=== PATIENT | male | born 1965 | race Caucasian/White ===

== ENCOUNTER 2016-11-29 09:22 | Observation (INO) | payer OTHER ==
[2016-11-29] MEDS ORDERED: ASPIRIN 81 MG PO STA (09:55)
[2016-11-29] MEDS ORDERED: NITROGLYCERIN OINT 1 INCH/GM PACKET TOPICAL STA (09:55)
--- NOTE | 2016-11-29 09:58 | ED ---
General Adult HPI - General Chief complaint: Chest Pain Stated complaint: CHEST PAIN Time Seen by Provider: 11/29/16 09:25 Source: patient, RN notes reviewed Mode of arrival: ambulatory Limitations: no limitations - History of Present Illness Initial comments: This is a 51-year-old male who presents emergency Department with a family history significant for heart attacks both mom and dad. Patient comes in today because he is having shortness of breath associated with chest pain in the center of his chest. Patient states she was just resting when it occurred. Patient states he started feeling lightheaded like he might pass out what was occurring. Patient states it lasts about an hour and a half and now is completely resolved. Patient states she was also mildly sweaty and mildly nauseated when it occurred. Patient denies any headache patient denies numbness weakness. Patient denies any history of diabetes hypertension or high cholesterol. Patient denies any smoking. Patient denies abdominal pain patient denies any vomiting or diarrhea. Patient denies any recent fever chills or cough. - Related Data Home Medications Medication Instructions Recorded Confirmed Aspirin EC [Ecotrin Low Dose] 81 mg PO ONCE PRN 11/29/16 11/29/16 Allergies Allergy/AdvReac Type Severity Reaction Status Date / Time meperidine [From Demerol] AdvReac Severe CARDIAC Verified 11/29/16 09:37 ARREST Review of Systems ROS Statement: Those systems with pertinent positive or pertinent negative responses have been documented in the HPI. ROS Other: All systems not noted in ROS Statement are negative. Past Medical History Additional Past Medical History / Comment(s): ulcers History of Any Multi-Drug Resistant Organisms: None Reported Past Surgical History: Orthopedic Surgery Past Psychological History: Bipolar Smoking Status: Former smoker Past Alcohol Use History: None Reported Past Drug Use History: None Reported General Exam - General Exam Comments Initial Comments: GENERAL: Patient is well-developed and well-nourished. Patient is nontoxic and well- hydrated and is in no acute distress. ENT: Neck is soft and supple. No significant lymphadenopathy is noted. Oropharynx is clear. Moist mucous membranes. Neck has full range of motion without eliciting any pain. EYES: The sclera were anicteric and conjunctiva were pink and moist. Extraocular movements were intact and pupils were equal round and reactive to light. Eyelids were unremarkable. PULMONARY: Unlabored respirations. Good breath sounds bilaterally. No audible rales rhonchi or wheezing was noted. CARDIOVASCULAR: There is a regular rate and rhythm without any murmurs gallops or rubs. ABDOMEN: Soft and nontender with normal bowel sounds. No palpable organomegaly was noted. There is no palpable pulsatile mass. SKIN: Skin is clear with no lesions or rashes and otherwise unremarkable. NEUROLOGIC: Patient is alert and oriented x3. Cranial nerves II through XII are grossly intact. Motor and sensory are also intact. Normal speech, volume and content. Symmetrical smile. MUSCULOSKELETAL: Normal extremities with adequate strength and full range of motion. No lower extremity swelling or edema. No calf tenderness. LYMPHATICS: No significant lymphadenopathy is noted PSYCHIATRIC: Normal psychiatric evaluation. Limitations: no limitations Course Vital Signs 11/29/16 11/29/16 09:24 10:41 Temperature 97.8 F Pulse Rate 88 76 Respiratory 20 18 Rate Blood Pressure 152/96 121/85 O2 Sat by Pulse 98 97 Oximetry Medical Decision Making - Medical Decision Making EKG shows sinus tachycardia at 102 bpm NM interval is 150 QRS is 84 QT interval 364 QTC is 474. Patient's EKG shows no ST segment elevation or depression or T wave abnormalities are noted. Chest x-ray shows no acute abnormality. Patient has been chest pain free since pain emergency department. - Lab Data Result diagrams: 11/29/16 09:30 11/29/16 09:30 Lab Results 11/29/16 11/29/16 11/29/16 Range/Units 09:30 09:30 09:30 WBC 6.1 (3.8-10.6) k/uL RBC 5.20 (4.30-5.90) m/uL Hgb 16.0 (13.0-17.5) gm/dL Hct 43.3 (39.0-53.0) % MCV 83.4 (80.0-100.0) fL MCH 30.8 (25.0-35.0) pg MCHC 37.0 (31.0-37.0) g/dL RDW 13.4 (11.5-15.5) % Plt Count 318 (150-450) k/uL Neutrophils % 54 % Lymphocytes % 31 % Monocytes % 9 % Eosinophils % 2 % Basophils % 1 % Neutrophils # 3.3 (1.3-7.7) k/uL Lymphocytes # 1.9 (1.0-4.8) k/uL Monocytes # 0.5 (0-1.0) k/uL Eosinophils # 0.1 (0-0.7) k/uL Basophils # 0.0 (0-0.2) k/uL Hyperchromasia Slight PT (9.0-12.0) sec INR (<1.2) APTT (22.0-30.0) sec Sodium 144 (137-145) mmol/L Potassium 4.0 (3.5-5.1) mmol/L Chloride 104 (98-107) mmol/L Carbon Dioxide 27 (22-30) mmol/L Anion Gap 13 mmol/L BUN 9 (9-20) mg/dL Creatinine 1.07 (0.66-1.25) mg/dL Est GFR (MDRD) Af Amer >60 (>60 ml/min/1.73 sqM) Est GFR (MDRD) Non-Af >60 (>60 ml/min/1.73 sqM) Glucose 107 H (74-99) mg/dL Calcium 9.6 (8.4-10.2) mg/dL Magnesium 2.0 (1.6-2.3) mg/dL Total Bilirubin 0.6 (0.2-1.3) mg/dL AST 30 (17-59) U/L ALT 59 (21-72) U/L Alkaline Phosphatase 78 (38-126) U/L Total Creatine Kinase 94 (55-170) U/L CK-MB (CK-2) 1.1 (0.0-2.4) ng/mL CK-MB (CK-2) Rel Index 1.2 Troponin I <0.012 (0.000-0.034) ng/mL Total Protein 7.6 (6.3-8.2) g/dL Albumin 4.7 (3.5-5.0) g/dL 11/29/16 Range/Units 09:30 WBC (3.8-10.6) k/uL RBC (4.30-5.90) m/uL Hgb (13.0-17.5) gm/dL Hct (39.0-53.0) % MCV (80.0-100.0) fL MCH (25.0-35.0) pg MCHC (31.0-37.0) g/dL RDW (11.5-15.5) % Plt Count (150-450) k/uL Neutrophils % % Lymphocytes % % Monocytes % % Eosinophils % % Basophils % % Neutrophils # (1.3-7.7) k/uL Lymphocytes # (1.0-4.8) k/uL Monocytes # (0-1.0) k/uL Eosinophils # (0-0.7) k/uL Basophils # (0-0.2) k/uL Hyperchromasia PT 9.9 (9.0-12.0) sec INR 1.0 (<1.2) APTT 29.6 (22.0-30.0) sec Sodium (137-145) mmol/L Potassium (3.5-5.1) mmol/L Chloride (98-107) mmol/L Carbon Dioxide (22-30) mmol/L Anion Gap mmol/L BUN (9-20) mg/dL Creatinine (0.66-1.25) mg/dL Est GFR (MDRD) Af Amer (>60 ml/min/1.73 sqM) Est GFR (MDRD) Non-Af (>60 ml/min/1.73 sqM) Glucose (74-99) mg/dL Calcium (8.4-10.2) mg/dL Magnesium (1.6-2.3) mg/dL Total Bilirubin (0.2-1.3) mg/dL AST (17-59) U/L ALT (21-72) U/L Alkaline Phosphatase (38-126) U/L Total Creatine Kinase (55-170) U/L CK-MB (CK-2) (0.0-2.4) ng/mL CK-MB (CK-2) Rel Index Troponin I (0.000-0.034) ng/mL Total Protein (6.3-8.2) g/dL Albumin (3.5-5.0) g/dL Disposition Clinical Impression: Chest pain Disposition: ADMITTED IP TO THIS [facility] Referrals: None,Stated [Primary Care Provider] - 1-2 days Time of Disposition: 12:00
[2016-11-29 10:19] LABS: Basophils % (A) 1 %; CH 31.1; CHCM 37.5; Eosinophils # (A) 0.1 k/uL (0-0.7); Eosinophils % (A) 2 %; HCT 43.3 % (39.0-53.0); HDW 3.17; Hyperchromasia Slight; Luc # (Auto) 0.27; Luc % (Auto) 4; Lymphocytes # (A) 1.9 k/uL (1.0-4.8); Lymphocytes % (A) 31 %; MCH 30.8 pg (25.0-35.0); MCV 83.4 fL (80.0-100.0); Mean Platelet Volume 6.7; Monocytes # (A) 0.5 k/uL (0-1.0); Monocytes % (A) 9 %; Neutrophils # (A) 3.3 k/uL (1.3-7.7); Neutrophils % (A) 54 %; RDW 13.4 % (11.5-15.5); WBC 6.1 k/uL (3.8-10.6); WBC (Perox) 5.87
[2016-11-29 10:26] LABS: Partial Thromboplastin Time 29.6 sec (22.0-30.0); Prothrombin Time 9.9 sec (9.0-12.0)
[2016-11-29 10:35] LABS: ALT 59 U/L (21-72); AST 30 U/L (17-59); Alkaline Phosphatase 78 U/L (38-126); Anion Gap 13 mmol/L; Blood Urea Nitrogen 9 mg/dL (9-20); Calcium 9.6 mg/dL (8.4-10.2); Carbon Dioxide 27 mmol/L (22-30); Chloride 104 mmol/L (98-107); Glucose 107 mg/dL (74-99); Non-African American GFR(MDRD) >60 (>60 ml/min/1.73 sqM); Sodium 144 mmol/L (137-145); Total Bilirubin 0.6 mg/dL (0.2-1.3); Total Protein 7.6 g/dL (6.3-8.2)
[2016-11-29 10:36] LABS: Creatine Kinase 94 U/L (55-170)
[2016-11-29 10:50] LABS: Creatine Kinase MB 1.1 ng/mL (0.0-2.4); Troponin I <0.012 ng/mL (0.000-0.034)
--- NOTE | 2016-11-29 11:48 | XR ---
EXAMINATION TYPE: XR chest 2V DATE OF EXAM: 11/29/2016 COMPARISON: Prior chest x-ray June 13, 2013 HISTORY: Sharp chest pain. TECHNIQUE: Frontal and lateral views of the chest are obtained. FINDINGS: There is no focal air space opacity, pleural effusion, or pneumothorax seen. The cardiac silhouette size is within normal limits. The osseous structures are intact. IMPRESSION: No acute pulmonary process. No significant change from prior.
[2016-11-29] MEDS ORDERED: NITROGLYCERIN SL TABS 0.4 MG TAB SUBLINGUAL PRN (12:01)
--- NOTE | 2016-11-29 13:39 | P.HPIM ---
History of Present Illness H&P Date: 11/29/16 Chief Complaint: chest pain A 51-year-old gentleman with previous history of tobacco use comes in the hospital with complaints of sudden onset chest pain that was midsternal in location nonradiating complain of some diaphoresis. Patient stated that he was at rest during the onset of symptoms no alleviating or exacerbating factors. Patient states that he then walked up around the house which she thought provided some relief. episode lasted less than an hour and half. Patient was seen in the emergency room EKG did not reveal ST-T wave changes initial troponin is negative Patient has a positive family history however not less than 60 years of agein her grandfather At this time patient states that symptoms resolved and is having headaches blurry vision nausea vomiting diarrhea ambulation without any difficulty. Patient states that his other medical history includes a GI bleed in the past due to use of NSAIDs. 6 Review of Systems All systems: negative Past Medical History Additional Past Medical History / Comment(s): ulcers History of Any Multi-Drug Resistant Organisms: None Reported Past Surgical History: Orthopedic Surgery Past Psychological History: Bipolar Smoking Status: Former smoker Past Alcohol Use History: None Reported Past Drug Use History: None Reported Medications and Allergies Home Medications Medication Instructions Recorded Confirmed Type Aspirin EC [Ecotrin Low Dose] 81 mg PO ONCE PRN 11/29/16 11/29/16 History Allergies Allergy/AdvReac Type Severity Reaction Status Date / Time meperidine [From Demerol] AdvReac Severe CARDIAC Verified 11/29/16 09:37 ARREST Physical Exam Vitals: Vital Signs Temp Pulse Pulse Resp BP BP Pulse Ox 11/29/16 12:43 97.8 F 89 14 111/62 94 L 11/29/16 12:36 97.6 F 83 16 115/63 93 L 11/29/16 12:30 89 14 111/62 94 L 11/29/16 12:19 88 18 136/67 94 L 11/29/16 10:41 76 18 121/85 97 11/29/16 09:24 97.8 F 88 20 152/96 98 Intake and Output 11/28/16 11/29/16 11/29/16 22:59 06:59 14:59 Other: Weight 102.058 kg Patient Weight 11/30/16 06:59 Weight 102.058 kg Physical exam Gen. appearance oriented 3 in no distress Neck is supple no JVD Lungs good air entry clear to auscultation no rhonchi or wheezing Heart S1-S2 heard regular rate and rhythm no murmurs appreciated Abdomen is soft nontender no organomegaly bowel sounds are intact Neurologically cranial nerves II-12 grossly intact no focal motor or sensory deficits noted Skin no abnormalities appreciated Results CBC & Chem 7: 11/29/16 09:30 11/29/16 09:30 Labs: Abnormal Lab Results - Last 24 Hours (Table) 11/29/16 Range/Units 09:30 Glucose 107 H (74-99) mg/dL Assessment and Plan Plan: #1 atypical chest pain rule out ACS Plan Serial cardiac enzymes once cardiac enzymes are negative patient will likely be discharged home for outpatient may need a outpatient stress test at that time Does not have enough risk factors that would need an inpatient stress test. However will defer this to cardiology.
[2016-11-29 16:08] LABS: Creatine Kinase 78 U/L (55-170)
[2016-11-29 16:20] LABS: Creatine Kinase MB 0.9 ng/mL (0.0-2.4); Troponin I <0.012 ng/mL (0.000-0.034)
[2016-11-29] MEDS: NITROGLYCERIN OINT 1 INCH/GM PACKET TOPICAL SCH (17:32)
[2016-11-29] MEDS ORDERED: ACETAMINOPHEN TAB 325 MG TAB PO PRN (19:25)
[2016-11-29 21:50] LABS: Creatine Kinase 77 U/L (55-170)
[2016-11-29 22:03] LABS: Creatine Kinase MB 0.9 ng/mL (0.0-2.4); Troponin I <0.012 ng/mL (0.000-0.034)
[2016-11-30] MEDS: NITROGLYCERIN OINT 1 INCH/GM PACKET TOPICAL SCH ×2 (00:06→06:41)
[2016-11-30 03:10] LABS: Cholesterol 176 mg/dL (<200); HDL Cholesterol 27 mg/dL (40-60)
[2016-11-30 07:28] VITALS: RESP 18
[2016-11-30] MEDS ORDERED: ASPIRIN 325 MG TAB PO SCH (09:00)
--- NOTE | 2016-11-30 10:42 | P.DS ---
Providers Date of admission: 11/29/16 12:01 Attending physician: Kee Armenta MD Consults: 11/29/16 12:01 Consult Physician Urgent Consulting Provider: [facility] Consult Reason/Comments: Chest pain Do you want consulting provider notified?: Yes Primary care physician: Stated None Hospital Course: A 51-year-old gentleman with previous history of tobacco use comes in the hospital with complaints of sudden onset chest pain that was midsternal in location nonradiating complain of some diaphoresis. Patient stated that he was at rest during the onset of symptoms no alleviating or exacerbating factors. Patient states that he then walked up around the house which she thought provided some relief. episode lasted less than an hour and half. Patient was seen in the emergency room EKG did not reveal ST-T wave changes initial troponin is negative Patient has a positive family history however not less than 60 years of agein her grandfather At this time patient states that symptoms resolved and is having headaches blurry vision nausea vomiting diarrhea ambulation without any difficulty. Patient states that his other medical history includes a GI bleed in the past due to use of NSAIDs. 6 Physical exam Gen. appearance oriented 3 in no distress Neck is supple no JVD Lungs good air entry clear to auscultation no rhonchi or wheezing Heart S1-S2 heard regular rate and rhythm no murmurs appreciated Abdomen is soft nontender no organomegaly bowel sounds are intact Neurologically cranial nerves II-12 grossly intact no focal motor or sensory deficits noted Skin no abnormalities appreciated Plan: #1 atypical chest pain rule out ACS \ This is negative. Patient will be ambulated if no recurrence of the vague atypical symptoms described on day of admission patient will be discharged home to follow-up with cardiology on an outpatient basis for possibility of a stress test at that time Plan - Discharge Summary New Discharge Prescriptions: No Action Aspirin EC [Ecotrin Low Dose] 81 mg PO ONCE PRN PRN Reason: Chest Pain Discharge Medication List Aspirin EC [Ecotrin Low Dose] 81 mg PO ONCE PRN 11/29/16 [History] Follow up Appointment(s)/Referral(s): None,Stated [Primary Care Provider] - 1-2 days
[2016-11-30 11:58] VITALS: BP 127/79; PULSE 79; TEMP 98.1
--- NOTE | 2016-11-30 11:59 | P.CRDCN ---
History of Present Illness Consult date: 11/30/16 Reason for Consult (text): chest pain Chief complaint: chest pain History of present illness: This is a pleasant 51-year-old gentleman who presented to the emergency department after developing sharp left-sided chest discomfort while sitting in a chair. It occurred shortly after he ate and was somewhat relieved with walking and coughing. He also experienced some shortness of breath and lightheadedness. Past medical history includes an ulcer. Patient does have family history of CAD however no premature coronary artery disease. Upon presentation, EKG showed sinus tachycardia without ST-T wave abnormalities indicating ischemia. Troponins have been less than 0.0123. Laboratory values also showed triglycerides of 450 and HDL of 27. Chest x-ray showed no acute pulmonary process and no change from prior. Upon examination, patient is resting comfortably in bed. Denies further complaints of chest discomfort. Past Medical History Additional Past Medical History / Comment(s): ulcers History of Any Multi-Drug Resistant Organisms: None Reported Past Surgical History: Orthopedic Surgery Additional Past Surgical History / Comment(s): thumb surgery Past Anesthesia/Blood Transfusion Reactions: No Reported Reaction Past Psychological History: Bipolar Smoking Status: Former smoker Past Alcohol Use History: None Reported Past Drug Use History: None Reported - Past Family History Father Family Medical History: Coronary Artery Disease (CAD) Additional Family Medical History / Comment(s): CABG Mother Family Medical History: Myocardial Infarction ([place]) Additional Family Medical History / Comment(s): LEUKEMIA Medications and Allergies Home Medications Medication Instructions Recorded Confirmed Type Aspirin EC [Ecotrin Low Dose] 81 mg PO ONCE PRN 11/29/16 11/29/16 History Allergies Allergy/AdvReac Type Severity Reaction Status Date / Time meperidine [From Demerol] AdvReac Severe CARDIAC Verified 11/29/16 09:37 ARREST Physical Exam Vitals: Vital Signs Temp Pulse Pulse Resp BP BP Pulse Ox 11/30/16 07:28 98.2 F 64 18 113/74 97 11/30/16 03:34 97.8 F 66 16 116/71 97 11/29/16 23:24 97.6 F 60 16 119/64 94 L 11/29/16 19:30 97.6 F 69 16 116/66 97 11/29/16 16:00 97.7 F 75 16 116/60 94 L 11/29/16 12:43 97.8 F 89 14 111/62 94 L 11/29/16 12:36 97.6 F 83 16 115/63 93 L 11/29/16 12:30 89 14 111/62 94 L 11/29/16 12:19 88 18 136/67 94 L Intake and Output 11/29/16 11/30/16 11/30/16 22:59 06:59 14:59 Other: Voiding Method Toilet Toilet Toilet PHYSICAL EXAMINATION: HEENT: Head is atraumatic, normocephalic. Pupils equal, round. Neck is supple. There is no elevated jugular venous pressure. HEART EXAMINATION: Heart sounds regular, S1 and S2 normal. No murmur or gallop heard. CHEST EXAMINATION: Lungs are clear to auscultation and precussion. No chest wall tenderness is noted on palpation or with deep breathing. ABDOMEN: Soft, nontender. Bowel sounds are heard. No organomegaly noted. EXTREMITIES: 2+ peripheral pulses with no evidence of peripheral edema and no calf tenderness noted. NEUROLOGIC patient is awake, alert and oriented x3. . Results 11/29/16 09:30 11/29/16 09:30 Cardiac Enzymes 11/29/16 11/29/16 Range/Units 15:25 21:17 CK-MB (CK-2) 0.9 0.9 (0.0-2.4) ng/mL Troponin I <0.012 <0.012 (0.000-0.034) ng/mL Lipids 11/29/16 Range/Units 09:30 Triglycerides 458 H (<150) mg/dL Cholesterol 176 (<200) mg/dL HDL Cholesterol 27 L (40-60) mg/dL Current Medications Generic Name Dose Route Start Last Admin Trade Name Freq PRN Reason Stop Dose Admin Acetaminophen 650 mg 11/29/16 19:25 11/29/16 19:37 Tylenol Tab PO 650 mg Q6HR PRN Administration Fever and/ or Pain Aspirin 325 mg 11/30/16 09:00 11/30/16 10:02 Aspirin PO 325 mg DAILY IRINA Administration Nitroglycerin 1 inch 11/29/16 18:00 11/30/16 06:41 Nitro-Bid Oint TOPICAL Not Given Q6HR [facility] Nitroglycerin 0.4 mg 11/29/16 12:01 Nitrostat SUBLINGUAL Q5M PRN Chest Pain Intake and Output 11/29/16 11/30/16 11/30/16 22:59 06:59 14:59 Other: Voiding Method Toilet Toilet Toilet 11/29/16 09:30 11/29/16 09:30 EKG Interpretations (text) Sinus tachycardia Assessment and Plan Plan: Assessment and plan #1 atypical chest discomfort, troponins negative 3 #2 hypertriglyceridemia #3 prior smoker, currently uses vapors From cardiology perspective, patient is stable for discharge home will follow- up in the office as an outpatient for further cardiac workup. Discussed in detail with patient importance of dietary changes for high triglycerides. SENIOR ACCOUNT EXECUTIVE note has been reviewed, I agree with a documented findings and plan of care. Patient was seen and examined.
--- NOTE | 2016-11-30 12:34 | P.CRDCN ---
History of Present Illness History of present illness: 51-year-old male patient with a history of smoking cigarettes who presented with chest discomfort/heaviness to the hospital. This was nonradiating. Cardiac enzymes are normal. Family history of CAD. EKG was normal. Blood pressure 127/79 mmHg normal heart rates He's had knee surgeries and is unable to run a treadmill Impression Chest discomfort concerning for angina History of smoking in the past Low HDL High triglycerides of 458 Family history of CAD Plan Since patient is unable to exercise on a treadmill, Lexiscan or dobutamine cardiac stress test as an outpatient Follow-up with Dr. Landry thereafter Baby aspirin and atorvastatin 20 mg by mouth daily Low salt diet Complete smoking cessation Past Medical History Additional Past Medical History / Comment(s): ulcers History of Any Multi-Drug Resistant Organisms: None Reported Past Surgical History: Orthopedic Surgery Additional Past Surgical History / Comment(s): thumb surgery Past Anesthesia/Blood Transfusion Reactions: No Reported Reaction Past Psychological History: Bipolar Smoking Status: Former smoker Past Alcohol Use History: None Reported Past Drug Use History: None Reported - Past Family History Father Family Medical History: Coronary Artery Disease (CAD) Additional Family Medical History / Comment(s): CABG Mother Family Medical History: Myocardial Infarction ([place]) Additional Family Medical History / Comment(s): LEUKEMIA Medications and Allergies Home Medications Medication Instructions Recorded Confirmed Type RX: Aspirin EC [Ecotrin Low Dose] 81 mg PO ONCE PRN 11/29/16 11/29/16 History Allergies Allergy/AdvReac Type Severity Reaction Status Date / Time meperidine [From Demerol] AdvReac Severe CARDIAC Verified 11/29/16 09:37 ARREST Physical Exam Vitals: Vital Signs Temp Pulse Pulse Resp BP BP Pulse Ox 11/30/16 11:57 98.1 F 79 18 127/79 94 L 11/30/16 07:28 98.2 F 64 18 113/74 97 11/30/16 03:34 97.8 F 66 16 116/71 97 11/29/16 23:24 97.6 F 60 16 119/64 94 L 11/29/16 19:30 97.6 F 69 16 116/66 97 11/29/16 16:00 97.7 F 75 16 116/60 94 L 11/29/16 12:43 97.8 F 89 14 111/62 94 L 11/29/16 12:36 97.6 F 83 16 115/63 93 L Intake and Output 11/29/16 11/30/16 11/30/16 22:59 06:59 14:59 Other: Voiding Method Toilet Toilet Toilet Results 11/29/16 09:30 11/29/16 09:30 Cardiac Enzymes 11/29/16 11/29/16 Range/Units 15:25 21:17 CK-MB (CK-2) 0.9 0.9 (0.0-2.4) ng/mL Troponin I <0.012 <0.012 (0.000-0.034) ng/mL Lipids 11/29/16 Range/Units 09:30 Triglycerides 458 H (<150) mg/dL Cholesterol 176 (<200) mg/dL HDL Cholesterol 27 L (40-60) mg/dL Current Medications Generic Name Dose Route Start Last Admin Trade Name Freq PRN Reason Stop Dose Admin Aspirin 325 mg 11/30/16 09:00 11/30/16 10:02 Aspirin PO 325 mg DAILY [facility] Administration Nitroglycerin 1 inch 11/29/16 18:00 11/30/16 06:41 Nitro-Bid Oint TOPICAL Not Given Q6HR [facility] Nitroglycerin 0.4 mg 11/29/16 12:01 Nitrostat SUBLINGUAL Q5M PRN Chest Pain Intake and Output 11/29/16 11/30/16 11/30/16 22:59 06:59 14:59 Other: Voiding Method Toilet Toilet Toilet 11/29/16 09:30 11/29/16 09:30
[2016-12-01] MEDS ORDERED: NITROGLYCERIN SL TABS 0.4 MG TAB SUBLINGUAL ONE (23:15)
== END 2016-11-30 12:57 | disposition home or self-care (01) ==
LOC: EC 09:22 → 3OBS 12:01
PROVIDERS: ADMIT Internal Medicine; ATTEND Internal Medicine
DX: R07.89 Other chest pain (principal); E78.1 Pure hyperglyceridemia; R61 Generalized hyperhidrosis; R11.0 Nausea; R06.02 Shortness of breath; R42 Dizziness and giddiness; R19.7 Diarrhea, unspecified; R11.2 Nausea with vomiting, unspecified; H53.8 Other visual disturbances; Z88.5 Allergy status to narcotic agent; Z87.891 Personal history of nicotine dependence; Z82.49 Family history of ischemic heart disease and other diseases of the circulatory system
CPT/HCPCS: 99285; 36415; 93005; 80061; 80053; 82550; 82553; 83735; 84484; 85025; 85610; 85730; 71020; G0378 ×2

== ENCOUNTER 2023-03-04 08:00 | Observation (INO) | payer BC, OTHER ==
[2023-03-04 08:13] VITALS: TEMP 98.4
[2023-03-04] MEDS ORDERED: SODIUM CHLORIDE 0.9% 500 ML 500 ML IV STA (08:13)
[2023-03-04] MEDS ORDERED: NITROGLYCERIN SL TABS 0.4 MG TAB SUBLINGUAL STA (08:13)
[2023-03-04] MEDS ORDERED: ASPIRIN 81 MG PO STA (08:13)
--- NOTE | 2023-03-04 08:17 | ED ---
General Adult HPI - General Chief complaint: Chest Pain Stated complaint: Chest pains Time Seen by Provider: 03/04/23 08:09 Source: patient, RN notes reviewed, old records reviewed Mode of arrival: ambulatory Limitations: no limitations - History of Present Illness Initial comments: Patient is a 57-year-old male who presents emergency department for any chest pains. States he has had them on and off again for the last 3 weeks or so. This morning he woke any of the typical chest pain over the left side of his chest. Describes a tightness sensation. Also had some left arm anesthesia sensation and mild nausea. Patient now states that symptoms have mostly resolved. Symptoms began at approximately 630 a.m. I evaluated the patient at approximately 8:10 AM. No cardiac history. Prior smoker. No history of hypertension or hyperlipidemia. It does appear patient was prescribed a cholesterol medication. Denies any lower extremity edema. Denies any dyspnea. States family does have a history of heart disease. His no other symptoms at this time. Reportedly had a stress test a few years ago that he states was unremarkable.Patient states his current discomfort as approximately 1 out of 10, when earlier it was "higher." - Related Data Home Medications Medication Instructions Recorded Confirmed Aspirin EC [Ecotrin Low Dose] 81 mg PO ONCE PRN 11/29/16 11/29/16 Atorvastatin Calcium [Lipitor] 20 mg PO HS 11/30/16 11/30/16 Allergies Allergy/AdvReac Type Severity Reaction Status Date / Time meperidine [From Demerol] AdvReac Severe CARDIAC Verified 03/04/23 08:04 ARREST Review of Systems ROS Statement: Those systems with pertinent positive or pertinent negative responses have been documented in the HPI. Review of Systems: CONST: Denies fever EYES: Denies blurry vision ENT: Denies nasal congestion C/V: Denies Chest pain RESP: Denies shortness of breath GI: Denies abdominal pain : Denies dysuria SKIN: Denies rash. MSK: Denies joint pain. NEURO: Denies headache ROS Other: All systems not noted in ROS Statement are negative. Past Medical History Past Medical History: GERD/Reflux Additional Past Medical History / Comment(s): ulcers History of Any Multi-Drug Resistant Organisms: None Reported Past Surgical History: Orthopedic Surgery Additional Past Surgical History / Comment(s): thumb surgery, knee Past Anesthesia/Blood Transfusion Reactions: No Reported Reaction Past Psychological History: Bipolar Smoking Status: Never smoker Past Alcohol Use History: Occasional Past Drug Use History: None Reported - Past Family History Father Family Medical History: Coronary Artery Disease (CAD) Additional Family Medical History / Comment(s): CABG Mother Family Medical History: Myocardial Infarction ([place]) Additional Family Medical History / Comment(s): LEUKEMIA General Exam - General Exam Comments Initial Comments: General: Appears in no acute distress. HEAD: Normal with no signs of head trauma. EYES: PERRLA, EOMI, conjunctiva normal, no discharge. ENT: Hearing grossly intact, normal oropharynx. RESPIRATORY: Clear breath sounds bilaterally. No wheezes, rales, or rhonchi. C/V: Regular rate and rhythm. S1 and S2 auscultated, no edema, peripheral pulses 2+ and intact throughout ABD: Abd is soft, nontender, nondistended EXT: Normal range of motion, no obvious deformity SKIN: No rashes or lesions observed on exposed skin. NEURO: Alert and oriented x 4. Cranial nerves II-XII intact. No focal sensory or strength deficits. Limitations: no limitations Course Vital Signs 03/04/23 03/04/23 03/04/23 08:05 08:07 08:29 Temperature 98.4 F Pulse Rate 93 84 Pulse Rate [ 68 Health Services Coordinator ] Respiratory 18 16 Rate Blood Pressure 169/109 164/101 O2 Sat by Pulse 94 L 96 Oximetry 03/04/23 03/04/23 08:30 08:38 Temperature Pulse Rate 90 Pulse Rate [ Health Services Coordinator ] Respiratory 20 16 Rate Blood Pressure 135/90 O2 Sat by Pulse 98 Oximetry Medical Decision Making - Medical Decision Making Was pt. sent in by a medical professional or institution (, PA, DONOR RELATIONS MANAGER, urgent care, hospital, or jail...) When possible be specific @ -No Did you speak to anyone other than the patient for history (EMS, parent, family, police, friend...)? What history was obtained from this source @ -No Did you review nursing and triage notes (agree or disagree)? Why? @ -I reviewed and agree with nursing and triage notes Were old charts reviewed (outside hosp., previous admission, EMS record, old EKG, old radiological studies, urgent care reports/EKG's, jail records)? Report findings @ -Old charts reviewed Differential Diagnosis (chest pain, altered mental status, abdominal pain women, abdominal pain men, vaginal bleeding, weakness, fever, dyspnea, syncope, headache, dizziness, GI bleed, back pain, seizure, CVA, palpatations, mental health, musculoskeletal)? @ -Differential Chest Pain: Stable Angina, Unstable Angina, STEMI, NSTEMI Aortic Dissection, Pneumothorax, Musculoskeletal, Esophageal Spasm GERD, Cholecystitis, Pancreatitis, Zoster, this is not meant to be an all-inclusive list. EKG interpreted by me (3pts min.). @ -As above X-rays interpreted by me (1pt min.). @ -Chest x-ray reveals no obvious acute cardio pulmonary process. CT interpreted by me (1pt min.). @ -None done U/S interpreted by me (1pt. min.). @ -None done What testing was considered but not performed or refused? (CT, X-rays, U/S, labs)? Why? @ -None What meds were considered but not given or refused? Why? @ -None Did you discuss the management of the patient with other professionals (professionals i.e. , PA, DONOR RELATIONS MANAGER, lab, RT, psych nurse, child welfare social worker, pie crimping machine operator, teacher, contracting officer, caseworker)? Give summary @ -I spoke with the admitting physician, Dr. Juarez who accepted the patient. Was smoking cessation discussed for >3mins.? @ -No Was critical care preformed (if so, how long)? @ -No Were there social determinants of health that impacted care today? How? (Homelessness, low income, unemployed, alcoholism, drug addiction, transportation, low edu. Level, literacy, decrease access to med. care, usp, rehab)? @ -No Was there de-escalation of care discussed even if they declined (Discuss DNR or withdrawal of care, Hospice)? DNR status @ -No What co-morbidities impacted this encounter? (DM, HTN, Smoking, COPD, CAD, Ca ncer, CVA, ARF, Chemo, Hep., AIDS, mental health diagnosis, sleep apnea, morbid obesity)? @ -None Was patient admitted / discharged? Hospital course, mention meds given and route, prescriptions, significant lab abnormalities, going to OR and other pertinent info. @ -Based on the patient's presentation and physical exam, I'm concerned for po ssible cardiac etiology for his current symptoms for we will obtain cardiac workup. Vitals within normal limits. He'll be given aspirin, nitro. Patient in agreement with this plan. EKG showed no signs of acute ischemia. Chest x-ray shows no obvious acute cardio pulmonary process. Laboratory studies within acceptable limits including troponin that is undetectable. Following night show administration, pain improved from 1/10 to 0/10, and patient thinks and nitro may have contributed to the improvement. Patiently placed on Nitropaste. We discussed his workup. He will be admitted to [facility] for chest pain. Heart score is moderate at 4. He was in agreement this plan. Cardiology consulted. Echo ordered. I spoke with the admitting physician, Dr. Juarez who accepted the patient. Undiagnosed new problem with uncertain prognosis? @ -No Drug Therapy requiring intensive monitoring for toxicity (Heparin, Nitro, Insulin, Cardizem)? @ -No Were any procedures done? @ -No Diagnosis/symptom? @ -Chest pain Acute, or Chronic, or Acute on Chronic? @ -Acute Uncomplicated (without systemic symptoms) or Complicated (systemic symptoms)? @ -Uncomplicated Side effects of treatment? @ -none Exacerbation, Progression, or Severe Exacerbation] @ -no Poses a threat to life or bodily function? @ -possibly, yes - Lab Data Result diagrams: 03/04/23 08:13 03/04/23 08:13 Lab Results 03/04/23 03/04/23 03/04/23 Range/Units 08:13 08:13 08:13 WBC 5.4 (3.8-10.6) k/uL RBC 4.91 (4.30-5.90) m/uL Hgb 15.5 (13.0-17.5) gm/dL Hct 42.9 (39.0-53.0) % MCV 87.5 (80.0-100.0) fL MCH 31.5 (25.0-35.0) pg MCHC 36.0 (31.0-37.0) g/dL RDW 12.6 (11.5-15.5) % Plt Count 269 (150-450) k/uL MPV 7.5 Neutrophils % 59 % Lymphocytes % 24 % Monocytes % 9 % Eosinophils % 3 % Basophils % 1 % Neutrophils # 3.2 (1.3-7.7) k/uL Lymphocytes # 1.3 (1.0-4.8) k/uL Monocytes # 0.5 (0-1.0) k/uL Eosinophils # 0.2 (0-0.7) k/uL Basophils # 0.1 (0-0.2) k/uL PT 10.1 (10.0-12.5) sec INR 0.9 (<1.2) APTT 34.4 H (22.0-30.0) sec Sodium 141 (137-145) mmol/L Potassium 3.9 (3.5-5.1) mmol/L Chloride 106 (98-107) mmol/L Carbon Dioxide 23 (22-30) mmol/L Anion Gap 12 mmol/L BUN 15 (9-20) mg/dL Creatinine 0.84 (0.66-1.25) mg/dL Est GFR (CKD-EPI)AfAm >90 (>60 ml/min/1.73 sqM) Est GFR (CKD-EPI)NonAf >90 (>60 ml/min/1.73 sqM) Glucose 102 H (74-99) mg/dL Calcium 9.6 (8.4-10.2) mg/dL Magnesium 2.2 (1.6-2.3) mg/dL Total Bilirubin 0.7 (0.2-1.3) mg/dL AST 32 (17-59) U/L ALT 40 (4-49) U/L Alkaline Phosphatase 73 (38-126) U/L Troponin I (0.000-0.034) ng/mL Total Protein 7.6 (6.3-8.2) g/dL Albumin 4.7 (3.5-5.0) g/dL Lipase 232 (23-300) U/L 03/04/23 Range/Units 08:13 WBC (3.8-10.6) k/uL RBC (4.30-5.90) m/uL Hgb (13.0-17.5) gm/dL Hct (39.0-53.0) % MCV (80.0-100.0) fL MCH (25.0-35.0) pg MCHC (31.0-37.0) g/dL RDW (11.5-15.5) % Plt Count (150-450) k/uL MPV Neutrophils % % Lymphocytes % % Monocytes % % Eosinophils % % Basophils % % Neutrophils # (1.3-7.7) k/uL Lymphocytes # (1.0-4.8) k/uL Monocytes # (0-1.0) k/uL Eosinophils # (0-0.7) k/uL Basophils # (0-0.2) k/uL PT (10.0-12.5) sec INR (<1.2) APTT (22.0-30.0) sec Sodium (137-145) mmol/L Potassium (3.5-5.1) mmol/L Chloride (98-107) mmol/L Carbon Dioxide (22-30) mmol/L Anion Gap mmol/L BUN (9-20) mg/dL Creatinine (0.66-1.25) mg/dL Est GFR (CKD-EPI)AfAm (>60 ml/min/1.73 sqM) Est GFR (CKD-EPI)NonAf (>60 ml/min/1.73 sqM) Glucose (74-99) mg/dL Calcium (8.4-10.2) mg/dL Magnesium (1.6-2.3) mg/dL Total Bilirubin (0.2-1.3) mg/dL AST (17-59) U/L ALT (4-49) U/L Alkaline Phosphatase (38-126) U/L Troponin I <0.012 (0.000-0.034) ng/mL Total Protein (6.3-8.2) g/dL Albumin (3.5-5.0) g/dL Lipase (23-300) U/L - EKG Data -: EKG Interpreted by Me EKG Comments: 12-lead Electrocardiogram Interpretation Note EKG was reviewed and interpreted by myself. 12-lead ECG performed at 0815 is interpreted by me as revealing normal sinus rhythm at a rate of 90 beats per minute. [place] is normal. SC interval is 160 ms, QRS duration is 93 ms, QTc is 416 ms.. There were no ST or T wave abnormalities to suggest myocardial ischemia or injury. R wave progression across the precordium was satisfactory. By my interpretation this EKG is non-diagnostic for acute ischemia. Disposition Clinical Impression: Chest pain Disposition: ADMITTED IP TO THIS HOSP Condition: Stable Referrals: None,Stated [REFERRING] - 1-2 days Time of Disposition: 09:22
[2023-03-04 08:42] LABS: Basophils # (A) 0.1 k/uL (0-0.2); Basophils % (A) 1 %; Eosinophils # (A) 0.2 k/uL (0-0.7); Eosinophils % (A) 3 %; HCT 42.9 % (39.0-53.0); HGB 15.5 gm/dL (13.0-17.5); Lymphocytes # (A) 1.3 k/uL (1.0-4.8); Lymphocytes % (A) 24 %; MCH 31.5 pg (25.0-35.0); MCV 87.5 fL (80.0-100.0); Mean Platelet Volume 7.5; Monocytes # (A) 0.5 k/uL (0-1.0); Monocytes % (A) 9 %; Neutrophils # (A) 3.2 k/uL (1.3-7.7); Neutrophils % (A) 59 %; Platelet Count 269 k/uL (150-450); RBC 4.91 m/uL (4.30-5.90); RDW 12.6 % (11.5-15.5); WBC 5.4 k/uL (3.8-10.6)
--- NOTE | 2023-03-04 08:46 | XR ---
EXAMINATION TYPE: XR chest 2V DATE OF EXAM: 03/04/2023 COMPARISON: Prior chest x-ray November 29, 2016 HISTORY: Chest pain. TECHNIQUE: Frontal and lateral views of the chest are obtained. FINDINGS: There is no suspicious new focal air space opacity, pleural effusion, or pneumothorax see n. The cardiac silhouette size is stable and within normal limits. The osseous structures are inta ct. IMPRESSION: No acute process. No significant change from prior.
[2023-03-04 08:54] LABS: INR 0.9 (<1.2); Partial Thromboplastin Time 34.4 sec (22.0-30.0); Prothrombin Time 10.1 sec (10.0-12.5)
[2023-03-04 08:55] LABS: ALT 40 U/L (4-49); AST 32 U/L (17-59); African American GFR (CKD) >90 (>60 ml/min/1.73 sqM); Albumin 4.7 g/dL (3.5-5.0); Alkaline Phosphatase 73 U/L (38-126); Anion Gap 12 mmol/L; Blood Urea Nitrogen 15 mg/dL (9-20); Calcium 9.6 mg/dL (8.4-10.2); Carbon Dioxide 23 mmol/L (22-30); Chloride 106 mmol/L (98-107); Glucose 102 mg/dL (74-99); Lipase 232 U/L (23-300); Magnesium 2.2 mg/dL (1.6-2.3); Non-African American GFR(CKD) >90 (>60 ml/min/1.73 sqM); Potassium 3.9 mmol/L (3.5-5.1); Sodium 141 mmol/L (137-145); Total Bilirubin 0.7 mg/dL (0.2-1.3); Total Protein 7.6 g/dL (6.3-8.2)
[2023-03-04] MEDS ORDERED: NITROGLYCERIN OINT 1 INCH/GM PACKET TOPICAL SCH (09:00)
[2023-03-04] MEDS ORDERED: NALOXONE 0.4 MG/ML 1 ML VIAL IV PRN (09:22)
[2023-03-04] MEDS ORDERED: ACETAMINOPHEN TAB 325 MG TAB PO PRN (10:05)
[2023-03-04] MEDS ORDERED: ONDANSETRON 4 MG/2 ML VIAL IVP PRN (10:05)
[2023-03-04] MEDS ORDERED: traMADol 50 MG TAB PO PRN (10:05)
[2023-03-04] MEDS ORDERED: HYDROmorphone 1 MG/ML 1 ML SYRINGE IVP PRN (10:05)
[2023-03-04] MEDS ORDERED: MAG HYDROX/AL HYDROX/SIMETH 30 ML CUP PO PRN (10:05)
[2023-03-04] MEDS ORDERED: MELATONIN 3 MG TABLET PO PRN (10:05)
--- NOTE | 2023-03-04 11:06 | P.CRDCN ---
History of Present Illness History of present illness: HISTORY OF PRESENT ILLNESS: This is a 57-year-old male with a past medical history significant for GERD and bipolar disorder. Patient used to follow in the office with Dr. Orosco but has not been seen in a few years. [facility] Patient examined at the bedside. Patient states he has been having chest discomfort on and off for the past couple weeks. He states the pain is not exertionally related. He states this morning he was awoken from sleep with chest discomfort. He states the pain is in the middle of his chest and feels like a needle poking him for a few seconds and then goes away. He does report having numbness and tingling in his left upper extremity as well. He denies any shortness of breath. He denied any nausea or vomiting. He denies any previous history of coronary artery disease. He does report a family history of CAD. He is a nonsmoker. He denies a history of hypertension, hyperlipidemia, or diabetes. The patient does report he had a stress test performed in the office a few years ago which was negative to his knowledge. * EKG reveals sinus mechanism with no signs of acute ischemia * Chest xray negative for acute process * Laboratory data: Troponin negative 1 * Current home cardiac medications include none REVIEW OF SYSTEMS: At the time of my exam: CONSTITUTIONAL: Denies fever or chills. HEENT: Denies blurred vision, vision changes, or eye pain. Denies hemoptysis CARDIOVASCULAR: Denies chest pain. Denies orthopnea. Denies PND. Denies palpitations RESPIRATORY: Denies shortness of breath. GASTROINTESTINAL: Denies abdominal pain. Denies nausea or vomiting. HEMATOLOGIC: Denies bleeding disorders. GENITOURINARY: Denies any blood in urine. SKIN: Denies pruitis. Denies rash. PHYSICAL EXAM: VITAL SIGNS: Reviewed. GENERAL: Well-developed in no acute distress. HEENT: Head is normocephalic. Pupils are equal, round. Sclerae anicteric. Mucous membranes of the mouth are moist. Neck supple. No JVD or thyromegaly LUNGS: Respirations even and unlabored. Lungs essentially clear to auscultation bilaterally. HEART: Regular rate and rhythm. S1 and S2 heard. ABDOMEN: Soft. Nondistended. Nontender. EXTREMITIES: Normal range of motion. No clubbing or cyanosis. Peripheral pulses intact. No lower extremity edema NEUROLOGIC: Awake and alert. Oriented x 3. ASSESSMENT: Chest pain, troponin negative 1 GERD Bipolar disorder Family history of CAD PLAN: 2-D echo has been ordered. Await results Patient with one negative troponin. Await second troponin If second troponin is negative, patient will undergo stress echocardiogram today If negative, the patient may be discharged home from a cardiac standpoint Nurse practitioner note has been reviewed by physician. Signing provider agrees with the documented findings, assessment, and plan of care. Past Medical History Past Medical History: GERD/Reflux Additional Past Medical History / Comment(s): ulcers History of Any Multi-Drug Resistant Organisms: None Reported Past Surgical History: Orthopedic Surgery Additional Past Surgical History / Comment(s): thumb surgery, knee Past Anesthesia/Blood Transfusion Reactions: No Reported Reaction Past Psychological History: Bipolar Smoking Status: Never smoker Past Alcohol Use History: Occasional Past Drug Use History: None Reported - Past Family History Father Family Medical History: Coronary Artery Disease (CAD) Additional Family Medical History / Comment(s): CABG Mother Family Medical History: Myocardial Infarction ([place]) Additional Family Medical History / Comment(s): LEUKEMIA Medications and Allergies Home Medications Medication Instructions Recorded Confirmed Type No Known Home Medications 03/04/23 03/04/23 History Allergies Allergy/AdvReac Type Severity Reaction Status Date / Time meperidine [From Demerol] AdvReac Severe CARDIAC Verified 03/04/23 09:38 ARREST Physical Exam Vitals: Vital Signs Temp Pulse Pulse Resp BP Pulse Ox 03/04/23 09:58 81 20 141/94 92 L 03/04/23 08:38 90 16 135/90 98 03/04/23 08:30 20 03/04/23 08:29 68 03/04/23 08:07 84 16 164/101 96 03/04/23 08:05 98.4 F 93 18 169/109 94 L Intake and Output 03/03/23 03/04/23 03/04/23 22:59 06:59 14:59 Other: Weight 99.79 kg Results 03/04/23 08:13 03/04/23 08:13 Cardiac Enzymes 03/04/23 03/04/23 Range/Units 08:13 08:13 AST 32 (17-59) U/L Troponin I <0.012 (0.000-0.034) ng/mL Coagulation 03/04/23 Range/Units 08:13 PT 10.1 (10.0-12.5) sec APTT 34.4 H (22.0-30.0) sec CBC 03/04/23 Range/Units 08:13 WBC 5.4 (3.8-10.6) k/uL RBC 4.91 (4.30-5.90) m/uL Hgb 15.5 (13.0-17.5) gm/dL Hct 42.9 (39.0-53.0) % Plt Count 269 (150-450) k/uL Comprehensive Metabolic Panel 03/04/23 Range/Units 08:13 Sodium 141 (137-145) mmol/L Potassium 3.9 (3.5-5.1) mmol/L Chloride 106 (98-107) mmol/L Carbon Dioxide 23 (22-30) mmol/L BUN 15 (9-20) mg/dL Creatinine 0.84 (0.66-1.25) mg/dL Glucose 102 H (74-99) mg/dL Calcium 9.6 (8.4-10.2) mg/dL AST 32 (17-59) U/L ALT 40 (4-49) U/L Alkaline Phosphatase 73 (38-126) U/L Total Protein 7.6 (6.3-8.2) g/dL Albumin 4.7 (3.5-5.0) g/dL Current Medications Generic Name Dose Route Start Last Admin Trade Name Freq PRN Reason Stop Dose Admin Acetaminophen 650 mg 03/04/23 10:05 Acetaminophen Tab 325 Mg Tab PO Q6HR PRN Mild Pain or Fever > 100.5 Al Hydroxide/Mg Hydroxide 15 ml 03/04/23 10:05 Mag Hydrox/Al Hydrox/Simeth 30 Ml Cup PO Q6HR PRN Indigestion Heparin Sodium (Porcine) 5,000 unit 03/04/23 16:00 Heparin Sodium,Porcine 5,000 Unit/Ml 1 Ml Vial SQ Q8HR IRINA Hydromorphone HCl 1 mg 03/04/23 10:05 Hydromorphone 1 Mg/Ml 1 Ml Syringe IVP Q3HR PRN Severe Pain (Scale 7 to 10) Melatonin 3 mg 03/04/23 10:05 Melatonin 3 Mg Tablet PO HS PRN Insomnia Naloxone HCl 0.2 mg 03/04/23 09:22 Naloxone 0.4 Mg/Ml 1 Ml Vial IV Q2M PRN Opioid Reversal Nitroglycerin 0.5 inch 03/04/23 09:00 03/04/23 09:00 Nitroglycerin Oint 1 Inch/Gm Packet TOPICAL 0.5 inch Q8HR IRINA Administration Ondansetron HCl 4 mg 03/04/23 10:05 Ondansetron 4 Mg/2 Ml Vial IVP Q8HR PRN Nausea And Vomiting Tramadol HCl 50 mg 03/04/23 10:05 Tramadol 50 Mg Tab PO Q6H PRN Moderate Pain (Scale 4 to 6) Intake and Output 03/03/23 03/04/23 03/04/23 22:59 06:59 14:59 Other: Weight 99.79 kg Patient Weight 03/05/23 06:59 Weight 99.79 kg 03/04/23 08:13 03/04/23 08:13
--- NOTE | 2023-03-04 12:14 | P.HPIM ---
History of Present Illness H&P Date: 03/04/23 Chief Complaint: Chest pain * 57-year-old gentleman with past medical history significant for dyslipidemia, family history of coronary artery disease, history of tobacco use presents to the emergency department with complains of chest pain * Patient stated his symptom onset was approximately 3 weeks ago, he complained of mid chest tightness, radiation to the left arm, this has been associated with nausea. Symptoms were intermittent however earlier today around 6:30 AM patient started having recurrent symptoms and decided to come to the emergency department for further evaluation * Workup initiated in ER included an EKG which showed sinus rhythm no significant ST segment changes * Blood work obtained in ER included CBC which was essentially within normal limits and 0.9, serum chemistry within normal limits * Initial troponin obtained within normal limits * Patient will replace as observation with consultation from cardiology to evaluate and rule out ACS REVIEW OF SYSTEMS: Chest pain on admission CONSTITUTIONAL: No fever, no malaise, no fatigue. HEENT: No recent visual problems or hearing problems. Denied any sore throat. CARDIOVASCULAR: No chest pain, orthopnea, PND, no palpitations, no syncope. PULMONARY: No shortness of breath, no cough, no hemoptysis. GASTROINTESTINAL: No diarrhea, no nausea, no vomiting, no abdominal pain. NEUROLOGICAL: No headaches, no weakness, no numbness. HEMATOLOGICAL: Denies any bleeding or petechiae. GENITOURINARY: Denies any burning micturition, frequency, or urgency. MUSCULOSKELETAL/RHEUMATOLOGICAL: Denies any joint pain, swelling, or any muscle pain. ENDOCRINE: Denies any polyuria or polydipsia. PHYSICAL EXAMINATION: GENERAL: The patient is alert and oriented x3, not in any acute distress. Well developed, well nourished. HEENT: Pupils are round and equally reacting to light. EOMI. CARDIOVASCULAR: S1 and S2 present. No murmurs, rubs, or gallops. PULMONARY: Chest is clear to auscultation, no wheezing or crackles. ABDOMEN: Soft, nontender, nondistended, normoactive bowel sounds. No palpable organomegaly. MUSCULOSKELETAL: No joint swelling or deformity. EXTREMITIES: No cyanosis, clubbing, or pedal edema. NEUROLOGICAL: Gross neurological examination did not reveal any focal deficits. SKIN: No rashes. Past Medical History Past Medical History: GERD/Reflux Additional Past Medical History / Comment(s): ulcers History of Any Multi-Drug Resistant Organisms: None Reported Past Surgical History: Orthopedic Surgery Additional Past Surgical History / Comment(s): thumb surgery, knee Past Anesthesia/Blood Transfusion Reactions: No Reported Reaction Past Psychological History: Bipolar Smoking Status: Never smoker Past Alcohol Use History: Occasional Past Drug Use History: None Reported - Past Family History Father Family Medical History: Coronary Artery Disease (CAD) Additional Family Medical History / Comment(s): CABG Mother Family Medical History: Myocardial Infarction ([place]) Additional Family Medical History / Comment(s): LEUKEMIA Medications and Allergies Home Medications Medication Instructions Recorded Confirmed Type No Known Home Medications 03/04/23 03/04/23 History Allergies Allergy/AdvReac Type Severity Reaction Status Date / Time meperidine [From Demerol] AdvReac Severe CARDIAC Verified 03/04/23 09:38 ARREST Physical Exam Vitals: Vital Signs Temp Pulse Pulse Resp BP Pulse Ox 03/04/23 09:58 81 20 141/94 92 L 03/04/23 08:38 90 16 135/90 98 03/04/23 08:30 20 03/04/23 08:29 68 03/04/23 08:07 84 16 164/101 96 03/04/23 08:05 98.4 F 93 18 169/109 94 L Intake and Output 03/03/23 03/04/23 03/04/23 22:59 06:59 14:59 Other: Weight 99.79 kg Results CBC & Chem 7: 03/04/23 08:13 03/04/23 08:13 Labs: Abnormal Lab Results - Last 24 Hours (Table) 03/04/23 03/04/23 Range/Units 08:13 08:13 APTT 34.4 H (22.0-30.0) sec Glucose 102 H (74-99) mg/dL Thrombosis Risk Factor Assmnt - DVT/VTE Prophylaxis DVT/VTE Prophylaxis: Mechanical Prophylaxis ordered Assessment and Plan Assessment: Assessment and plan Chest pain rule out acute coronary syndrome History of dyslipidemia Family history of coronary artery disease * In regards to chest pain, serial troponins ordered, sublingual U [place] chest pain, patient given aspirin in ED, follow-up on troponins, serial EKGs as needed for chest pain * Echocardiogram ordered, cardiology consulted * Patient will place in observation * CODE STATUS is full code Time with Patient: Greater than 30
--- NOTE | 2023-03-04 12:49 | CA ---
Transthoracic Echo Report Name: aFreed Lew Age: 57 Gender: M : 1965 Exam Date: 03/04/2023 12:46 Exam Location: [facility] Ht (in): 72 Wt (lb): 220 Ordering Physician: Wojciech Campos MD Attending/Referring Phys: Finance Intern Mayank Soto Procedure CPT: Indications: Chest Pain Cardiac Hx: Technical Quality: Fair Contrast 1: Definity Total Dose (mL): 2 Contrast 2: Total Dose (mL): MEASUREMENTS (Male / Female) Normal Values 2D ECHO LV Diastolic Diameter PLAX 5.0 cm 4.2 - 5.9 / 3.9 - 5.3 cm LV Systolic Diameter PLAX 3.5 cm IVS Diastolic Thickness 1.1 cm 0.6 - 1.0 / 0.6 - 0.9 cm LVPW Diastolic Thickness 1.1 cm 0.6 - 1.0 / 0.6 - 0.9 cm LV Relative Wall Thickness 0.4 RV Internal Dim ED PLAX 3.1 cm LVOT Diameter 2.1 cm Aortic Root Diameter 2.9 cm LA Systolic Diameter LX 3.4 cm 3.0 - 4.0 / 2.7 - 3.8 cm LV Diastolic Volume MOD BP 73.7 cm??? 67 - 155 / 56 - 104 cm??? LV Systolic Volume MOD BP 40.2 cm??? - / 19 - 49 cm??? LV Ejection Fraction MOD BP 45.5 % >= 55 % LV Cardiac Index MOD BP 957.9 cm???/min???m??? LV Diastolic Volume MOD 4C 79.5 cm??? LV Systolic Volume MOD 4C 48.3 cm??? LV Ejection Fraction MOD 4C 39.2 % LV Cardiac Index MOD 4C 891.6 cm???/min???m??? LV Diastolic Length 4C 7.6 cm LV Systolic Length 4C 7.0 cm LV Diastolic Volume MOD 2C 68.1 cm??? LV Systolic Volume MOD 2C 31.5 cm??? LV Ejection Fraction MOD 2C 53.7 % LV Cardiac Index MOD 2C 1046.2 cm???/min???m??? LV Diastolic Length 2C 7.5 cm LV Systolic Length 2C 6.6 cm LA Volume 45.2 cm??? 18 - 58 / 22 - 52 cm??? LA Volume Index 19.9 cm???/m??? 16 - 28 cm???/m??? DOPPLER AV Peak Velocity 132.7 cm/s AV Peak Gradient 7.0 mmHg LVOT Peak Velocity 84.3 cm/s LVOT Peak Gradient 2.8 mmHg LVOT Velocity Time Integral 19.0 cm LVOT Stroke Volume 64.7 cm??? LVOT Stroke Volume Index 29.2 ml/m??? LVOT Cardiac Index 1850.7 cm???/min???m??? AV Area Cont Eq pk 2.2 cm??? MV Peak Velocity 88.5 cm/s MV Peak Gradient 3.1 mmHg MV Mean Velocity 45.2 cm/s MV Mean Gradient 1.0 mmHg MV Velocity Time Integral 36.2 cm MR Peak Velocity 226.7 cm/s MR Peak Gradient 20.6 mmHg Mitral E Point Velocity 69.7 cm/s Mitral A Point Velocity 90.1 cm/s Mitral E to A Ratio 0.8 MV Deceleration Time 295.7 ms MV E' Velocity 6.2 cm/s Mitral E to MV E' Ratio 11.3 TR Peak Velocity 106.5 cm/s TR Peak Gradient 4.5 mmHg Right Ventricular Systolic Press 9.5 mmHg PV Peak Velocity 103.4 cm/s PV Peak Gradient 4.3 mmHg FINDINGS Left Ventricle Normal LV size and wall thickness. There does appear to be postero lateral and apical hypokenesis. Left ventricular ejection fraction is estimated at 45-50 %. Right Ventricle Normal right ventricular size. Right Atrium Normal right atrial size. Left Atrium Normal left atrial size. Mitral Valve Structurally normal mitral valve. Mild MR. Aortic Valve Aortic valve not well visualized. No aortic valve stenosis or regurgitation. Tricuspid Valve Tricuspid valve not well visualized. Pulmonic Valve Pulmonic valve not well visualized. No pulmonic regurgitation. Pericardium Normal pericardium. Aorta Normal size aortic root. CONCLUSIONS Mildly impaired LV function. The EF is 45-50% Overall technically difficult study Previewed by: Dr. Ulysses Lagunas MD (Electronically Signed) Final Date: 04 March 2023 12:47
--- NOTE | 2023-03-04 14:23 | P.DS ---
Providers Date of admission: 03/04/23 09:24 Expected date of discharge: 03/04/23 Attending physician: Taisha Juarez MD Primary care physician: [facility] Course: * 57-year-old gentleman with past medical history significant for dyslipidemia, family history of coronary artery disease, history of tobacco use presents to the emergency department with complains of chest pain * Patient stated his symptom onset was approximately 3 weeks ago, he complained of mid chest tightness, radiation to the left arm, this has been associated with nausea. Symptoms were intermittent however earlier today around 6:30 AM patient started having recurrent symptoms and decided to come to the emergency department for further evaluation * Workup initiated in ER included an EKG which showed sinus rhythm no significant ST segment changes * Blood work obtained in ER included CBC which was essentially within normal limits and 0.9, serum chemistry within normal limits * Initial troponin obtained within normal limits * Patient will replace as observation with consultation from cardiology to evaluate and rule out ACS * Patient was admitted as observation and cardiology was consulted. Patient underwent stress test and echocardiogram which was within normal limits * Serial troponins were obtained which were within normal limits REVIEW OF SYSTEMS: Chest pain on admission resolved CONSTITUTIONAL: No fever, no malaise, no fatigue. HEENT: No recent visual problems or hearing problems. Denied any sore throat. CARDIOVASCULAR: No chest pain, orthopnea, PND, no palpitations, no syncope. PULMONARY: No shortness of breath, no cough, no hemoptysis. GASTROINTESTINAL: No diarrhea, no nausea, no vomiting, no abdominal pain. NEUROLOGICAL: No headaches, no weakness, no numbness. HEMATOLOGICAL: Denies any bleeding or petechiae. GENITOURINARY: Denies any burning micturition, frequency, or urgency. MUSCULOSKELETAL/RHEUMATOLOGICAL: Denies any joint pain, swelling, or any muscle pain. ENDOCRINE: Denies any polyuria or polydipsia. PHYSICAL EXAMINATION: GENERAL: The patient is alert and oriented x3, not in any acute distress. Well developed, well nourished. HEENT: Pupils are round and equally reacting to light. EOMI. CARDIOVASCULAR: S1 and S2 present. No murmurs, rubs, or gallops. PULMONARY: Chest is clear to auscultation, no wheezing or crackles. ABDOMEN: Soft, nontender, nondistended, normoactive bowel sounds. No palpable organomegaly. MUSCULOSKELETAL: No joint swelling or deformity. EXTREMITIES: No cyanosis, clubbing, or pedal edema. NEUROLOGICAL: Gross neurological examination did not reveal any focal deficits. SKIN: No rashes. Assessment: Assessment and plan Chest pain ruled out acute coronary syndrome History of dyslipidemia Family history of coronary artery disease * In regards to chest pain, serial troponins negative, stress test and echocardiogram within normal limits, cleared for discharge from cardiology standpoint * Outpatient follow-up recommended Patient Condition at Discharge: Stable Plan - Discharge Summary New Discharge Prescriptions: No Action No Known Home Medications Discharge Medication List No Known Home Medications 03/04/23 [History] Follow up Appointment(s)/Referral(s): Ulysses Lagunas MD [STAFF PHYSICIAN] - 1 Week None,Stated [REFERRING] - 1-2 days Discharge Disposition: HOME SELF-CARE
[2023-03-04 14:38] VITALS: BP 131/83; PULSE 82; RESP 18
[2023-03-04] MEDS ORDERED: HEPARIN SODIUM,PORCINE 5,000 UNIT/ML 1 ML VIAL SQ SCH (16:00)
--- NOTE | 2023-03-05 09:21 | CA ---
Stress Echo Report Fareed Lew Age: 57 Gender: M : 1965 Exam Date: 03/04/2023 12:51 Exam Location: [facility] Ht (in): 72 Wt (lb): 220 Ordering Physician: Joselin Fields Referring Physician: [id number] Thomas Irrigation Engineer: SOFI, Technologist Procedure CPT: Indication: CP ICD-9 Codes: Rhythm: Patient History: Chest pain Cardiac Medications: Medications in past 24 hours: Contrast: Definity Stress Results Protocol: John Total dose(mL): 5 Exercise Duration (min:sec): 7:[address] Depression (mm): Angina Score: [place] Score: METS: 8.7 Resting HR: 99 Resting BP: 118 / 89 Peak HR: 163 Peak BP: 156 / 88 Max Predicted HR: 165 99 % Max Predicted HR Target HR: 140 Double Product: [id number] Stress Summary: BP Response: Reason for Termination: MAX EXERTION/TARGET HR Cardiac Symptoms: NO SYMPTOMS ECG Analysis Resting ECG: Stress ECG: Arrhythmia: Echo Analysis Resting Echo: Peak Echo Analysis: MEASUREMENTS (Male/Female) Normal Values CONCLUSIONS Good exercise tolerance Normal electrocardiogram and echocardiogram in response to exercise Dr. Ulysses Lagunas MD (Electronically Signed) Final Date: 05 March 2023 09:20
== END 2023-03-04 14:50 | disposition home or self-care (01) ==
LOC: EC 08:00 → 6NMEDSUR 09:24
PROVIDERS: ADMIT Internal Medicine; ATTEND Internal Medicine
DX: R07.89 Other chest pain (principal); R20.0 Anesthesia of skin; R11.0 Nausea; M79.602 Pain in left arm; R20.2 Paresthesia of skin; K21.9 Gastro-esophageal reflux disease without esophagitis; F31.9 Bipolar disorder, unspecified; Z79.899 Other long term (current) drug therapy; Z88.5 Allergy status to narcotic agent; Z87.891 Personal history of nicotine dependence; Z86.39 Personal history of other endocrine, nutritional and metabolic disease; Z98.890 Other specified postprocedural states; Z82.49 Family history of ischemic heart disease and other diseases of the circulatory system; Z80.6 Family history of leukemia
CPT/HCPCS: 96360; 96361; 99285; 36415; 93005; 93306; 93351; 80053; 83690; 83735; 84484; 85025; 85610; 85730; 71046; G0378; Q9957